=== PATIENT | female | born 1980 | race Asian ===

== ENCOUNTER 2020-05-17 00:08 | Inpatient (IN) | payer OTHER ==
[2020-05-17 00:30] VITALS: BMI 23.8
[2020-05-17] MEDS ORDERED: SODIUM CHLORIDE 500 ML IV STA (00:31)
[2020-05-17 01:00] LABS: BASO % 0.2 % (0-2.0); EOS % 0.1 % (0-4.5); HEMATOCRIT 36.4 % (32.4-45.2); HEMOGLOBIN 12.1 GM/dL (10.7-15.3); LYMPH % 7.7 % (8-40); MCH 31.1 pg (25.7-33.7); MCHC 33.1 g/dl (32.0-36.0); MEAN PLT VOLUME 10.7 fl (7.5-11.1); MONO % 2.4 % (3.8-10.2); NEUT % 89.6 % (42.8-82.8); PLATELET COUNT 193 K/MM3 (134-434); RBC 3.88 M/mm3 (3.60-5.2); RDW 13.2 % (11.6-15.6); WHITE BLOOD COUNT 10.6 K/mm3 (4.0-10.0)
[2020-05-17 01:04] LABS: INR 1.08 (0.83-1.09)
[2020-05-17 01:07] LABS: ACTIVATED PTT 24.2 SECONDS (25.2-36.5)
[2020-05-17 01:16] LABS: POTASSIUM 3.8 mmol/L (3.5-5.1)
[2020-05-17 01:18] LABS: CALCIUM 8.2 mg/dL (8.5-10.1)
[2020-05-17 01:19] LABS: ALBUMIN 3.5 g/dl (3.4-5.0); BLOOD UREA NITROGEN 15.6 mg/dL (7-18)
[2020-05-17 01:21] LABS: CREATININE 0.8 mg/dL (0.55-1.3)
[2020-05-17 01:23] LABS: BILIRUBIN,TOTAL 0.4 mg/dL (0.2-1); TOT PROT 6.4 g/dl (6.4-8.2)
[2020-05-17 01:39] LABS: PH,URINE 6.5 (5.0-8.0); URINE APPEARANCE CLEAR; URINE BILIRUBIN NEGATIVE (NEGATIVE); URINE COLOR YELLOW; URINE GLUCOSE (UA) NEGATIVE (NEGATIVE); URINE KETONE NEGATIVE (NEGATIVE); URINE LEUK ESTERASE NEGATIVE (NEGATIVE); URINE NITRITE NEGATIVE (NEGATIVE); URINE PROTEIN NEGATIVE (NEGATIVE); URINE UROBILINOGEN 0.2 mg/dL (0.2-1.0)
[2020-05-17] MEDS ORDERED: ACETAMINOPHEN 1000 MG/100 ML VIAL (NON FORMULARY) IVPB ONE (02:18)
[2020-05-17] MEDS ORDERED: ACETAMINOPHEN INJECTION 100 ML IVPB ONE (02:40)
[2020-05-17] MEDS ORDERED: LACTATED RINGERS SOLUTION 1000 ML INFUS.BAG IV ONE (02:56)
[2020-05-17] MEDS ORDERED: dilTIAZem HCL 50 MG/10 ML - 10 ML VIAL IVPUSH ONE (04:42)
[2020-05-17] MEDS ORDERED: dilTIAZem HCL 125 MG/25 ML - 25 ML VIAL ONE (04:51)
[2020-05-17] MEDS ORDERED: ONDANSETRON 4 MG/2 ML VIAL IVPUSH PRN (05:46)
[2020-05-17] MEDS: SODIUM CHLORIDE 1,000 ML IV SCH (06:13)
[2020-05-17] MEDS ORDERED: ASPIRIN 81 MG CHEWABLE TABLETS ONE (09:07)
[2020-05-17] MEDS ORDERED: ENOXAPARIN NA (PORCINE) 40 MG/0.4 ML DISP.SYRIN SQ ONE (09:07)
[2020-05-17] MEDS: ASPIRIN 81 MG CHEWABLE TABLETS PO SCH (09:38)
[2020-05-17] MEDS ORDERED: ENOXAPARIN NA (PORCINE) 40 MG/0.4 ML DISP.SYRIN SQ SCH (10:00)
[2020-05-17] MEDS ORDERED: METOPROLOL TARTRATE 25 MG TABLET (FP) ONE ×2 (10:15→21:18)
[2020-05-17] MEDS: METOPROLOL TARTRATE 25 MG TABLET (FP) PO SCH ×2 (10:52→21:25)
[2020-05-17 12:49] LABS: HEMATOCRIT 35.7 % (32.4-45.2); MCH 31.4 pg (25.7-33.7); MCHC 33.5 g/dl (32.0-36.0); MEAN CELL VOLUME 93.8 fl (80-96); MEAN PLT VOLUME 10.6 fl (7.5-11.1); PLATELET COUNT 183 K/MM3 (134-434); RBC 3.81 M/mm3 (3.60-5.2); RDW 13.2 % (11.6-15.6); WHITE BLOOD COUNT 6.4 K/mm3 (4.0-10.0)
[2020-05-17 12:55] LABS: POTASSIUM 3.7 mmol/L (3.5-5.1)
[2020-05-17 12:57] LABS: CALCIUM 8.5 mg/dL (8.5-10.1)
[2020-05-17 12:58] LABS: ALBUMIN 3.2 g/dl (3.4-5.0); BLOOD UREA NITROGEN 12.5 mg/dL (7-18); MAGNESIUM 2.1 mg/dL (1.8-2.4)
[2020-05-17 13:01] LABS: CREATININE 0.7 mg/dL (0.55-1.3); PHOSPHOROUS 2.5 mg/dL (2.5-4.9)
[2020-05-17 13:02] LABS: TOT PROT 6.2 g/dl (6.4-8.2)
[2020-05-17] MEDS: HEPARIN INFUSION - 25,000 UNITS/500 ML INFUS.BAG IVPB SCH ×2 (14:30→17:35)
[2020-05-17] MEDS ORDERED: HEPARIN NA (PORCINE) 5,000 UNITS/ML 1ML VIAL IVPUSH PRN ×2 (17:03)
[2020-05-17] MEDS ORDERED: HEPARIN INFUSION - 25,000 UNITS/500 ML INFUS.BAG IVPB ONE (17:28)
[2020-05-17] MEDS ORDERED: WARFARIN NA 10 MG TABLET PO ONE (18:00)
[2020-05-17] MEDS ORDERED: WARFARIN NA 5 MG TABLET ONE (18:41)
[2020-05-18] MEDS: SODIUM CHLORIDE 1,000 ML IV SCH (05:58)
[2020-05-18 07:43] LABS: INR 1.03 (0.83-1.09); PROTHROMBIN TIME (PATIENT) 12.7 SEC (9.7-13.0)
[2020-05-18 07:45] LABS: ACTIVATED PTT 78.1 SECONDS (25.2-36.5)
[2020-05-18] MEDS ORDERED: ASPIRIN COATED 81 MG TABLET.EC ONE (10:07)
[2020-05-18] MEDS ORDERED: METOPROLOL TARTRATE 25 MG TABLET (FP) ONE (10:07)
[2020-05-18] MEDS: ASPIRIN 81 MG CHEWABLE TABLETS PO SCH (10:23)
[2020-05-18] MEDS: METOPROLOL TARTRATE 25 MG TABLET (FP) PO SCH ×2 (10:23→22:27)
[2020-05-18] MEDS ORDERED: LIDOCAINE VISCOUS 2% ORAL/TOP 20 ML UNIT-DOSE CUP ONE (12:47)
[2020-05-18] MEDS ORDERED: LIDOCAINE VISCOUS 2% ORAL/TOP 20 ML UNIT-DOSE CUP MM ONE (12:54)
[2020-05-18] MEDS ORDERED: HEPARIN INFUSION - 25,000 UNITS/500 ML INFUS.BAG IVPB ONE (17:24)
[2020-05-18] MEDS ORDERED: WARFARIN NA 10 MG TABLET PO ONE (18:00)
[2020-05-18] MEDS ORDERED: WARFARIN NA 5 MG TABLET PO SCH (18:00)
[2020-05-19 07:58] LABS: HEMATOCRIT 34.6 % (32.4-45.2); HEMOGLOBIN 11.6 GM/dL (10.7-15.3); MCH 31.3 pg (25.7-33.7); MCHC 33.6 g/dl (32.0-36.0); MEAN CELL VOLUME 93.2 fl (80-96); MEAN PLT VOLUME 10.6 fl (7.5-11.1); PLATELET COUNT 185 K/MM3 (134-434); RBC 3.71 M/mm3 (3.60-5.2); RDW 13.1 % (11.6-15.6); WHITE BLOOD COUNT 5.7 K/mm3 (4.0-10.0)
[2020-05-19 07:59] LABS: INR 1.8 (0.83-1.09); PROTHROMBIN TIME (PATIENT) 21.4 SEC (9.7-13.0)
[2020-05-19 08:02] LABS: ACTIVATED PTT 81.7 SECONDS (25.2-36.5)
[2020-05-19 08:13] LABS: POTASSIUM 3.7 mmol/L (3.5-5.1)
[2020-05-19 08:19] LABS: CALCIUM 8.2 mg/dL (8.5-10.1)
[2020-05-19 08:20] LABS: ALBUMIN 2.9 g/dl (3.4-5.0); BLOOD UREA NITROGEN 11.9 mg/dL (7-18); MAGNESIUM 2.1 mg/dL (1.8-2.4)
[2020-05-19 08:23] LABS: CREATININE 0.7 mg/dL (0.55-1.3)
[2020-05-19 08:24] LABS: BILIRUBIN,TOTAL 0.3 mg/dL (0.2-1)
[2020-05-19 08:25] LABS: TOT PROT 5.4 g/dl (6.4-8.2)
[2020-05-19] MEDS: HEPARIN INFUSION - 25,000 UNITS/500 ML INFUS.BAG IVPB SCH ×2 (09:00→18:03)
[2020-05-19] MEDS: METOPROLOL TARTRATE 25 MG TABLET (FP) PO SCH ×2 (10:20→21:17)
[2020-05-19] MEDS ORDERED: WARFARIN NA 5 MG TABLET PO ONE (18:00)
[2020-05-19] MEDS ORDERED: WARFARIN NA 10 MG TABLET PO ONE (18:00)
[2020-05-20 07:43] LABS: HEMATOCRIT 33.9 % (32.4-45.2); HEMOGLOBIN 11.5 GM/dL (10.7-15.3); MCH 31.6 pg (25.7-33.7); MCHC 33.9 g/dl (32.0-36.0); MEAN CELL VOLUME 93.2 fl (80-96); MEAN PLT VOLUME 10.4 fl (7.5-11.1); PLATELET COUNT 194 K/MM3 (134-434); RBC 3.64 M/mm3 (3.60-5.2); RDW 13.1 % (11.6-15.6); WHITE BLOOD COUNT 4.9 K/mm3 (4.0-10.0)
[2020-05-20 07:48] LABS: ACTIVATED PTT 79.1 SECONDS (25.2-36.5)
[2020-05-20 07:55] LABS: CALCIUM 8.6 mg/dL (8.5-10.1)
[2020-05-20 07:57] LABS: ALBUMIN 3.2 g/dl (3.4-5.0)
[2020-05-20 07:59] LABS: CREATININE 0.7 mg/dL (0.55-1.3)
[2020-05-20 08:01] LABS: BILIRUBIN,TOTAL 0.5 mg/dL (0.2-1); TOT PROT 5.9 g/dl (6.4-8.2)
[2020-05-20 08:36] LABS: INR 1.94 (0.83-1.09)
[2020-05-20] MEDS: HEPARIN INFUSION - 25,000 UNITS/500 ML INFUS.BAG IVPB SCH (09:00)
[2020-05-20] MEDS: METOPROLOL TARTRATE 25 MG TABLET (FP) PO SCH (10:12)
[2020-05-20 11:25] VITALS: PULSE 65
[2020-05-20 15:30] VITALS: BP 137/73; TEMP 98
== END 2020-05-20 17:11 | disposition home or self-care (01) | DRG 201 ==
LOC: JER 00:08 → JERBED 02:57 → J4W 05-18 20:15
PROVIDERS: ADMIT Internal Medicine; ATTEND Internal Medicine
PROC: B246ZZ4 Ultrasonography of Right and Left Heart, Transesophageal (ICD-10-PCS; 2020-05-18)
PROC: 5A2204Z Restoration of Cardiac Rhythm, Single (ICD-10-PCS; principal; 2020-05-18 12:30)
DX: I48.0 Paroxysmal atrial fibrillation (principal); A08.4 Viral intestinal infection, unspecified; R00.0 Tachycardia, unspecified; J02.9 Acute pharyngitis, unspecified; R19.7 Diarrhea, unspecified; R74.01 Elevation of levels of liver transaminase levels; I05.0 Rheumatic mitral stenosis; K80.00 Calculus of gallbladder with acute cholecystitis without obstruction; I24.8 Other forms of acute ischemic heart disease
CPT/HCPCS: 36415; 71045-TC-FY; 74176-TC; 76705-TC; 80053; 80061; 80074; 81003; 82550; 83036; 83605; 83690; 83721; 83735; 84100; 84443; 84484; 84703; 85025; 85027; 85610; 85730; 87899; 93005; 93010; 93306-TC; 93312; 93325; 94760; 99285-25; C9803; J0131; J1644; U0003

== ENCOUNTER 2020-08-08 14:20 | Emergency (ER) | payer OTHER ==
[2020-08-08 14:30] VITALS: TEMP 97; BMI 24.0
[2020-08-08] MEDS ORDERED: MECLIZINE HCL 12.5 MG TABLET PO ONE (15:54)
[2020-08-08] MEDS ORDERED: METOCLOPRAMIDE HCL INJECTION 10 MG/2 ML VIAL IVPUSH ONE (15:54)
[2020-08-08] MEDS ORDERED: LACTATED RINGERS SOLUTION 1000 ML INFUS.BAG IV ONE ×2 (15:54→16:00)
[2020-08-08] MEDS ORDERED: MECLIZINE HCL 25 MG TABLET (FP) PO ONE (16:00)
[2020-08-08] MEDS ORDERED: METOCLOPRAMIDE HCL INJECTION 10 MG/2 ML VIAL ONE (16:20)
[2020-08-08] MEDS ORDERED: MECLIZINE HCL 25 MG TABLET (FP) ONE (16:20)
[2020-08-08 17:11] LABS: BASO % 0.5 % (0-2.0); EOS % 1.1 % (0-4.5); HEMATOCRIT 40.4 % (32.4-45.2); HEMOGLOBIN 13.5 GM/dL (10.7-15.3); LYMPH % 10.6 % (8-40); MCH 30.6 pg (25.7-33.7); MCHC 33.4 g/dl (32.0-36.0); MEAN CELL VOLUME 91.6 fl (80-96); MEAN PLT VOLUME 9.1 fl (7.5-11.1); NEUT % 84.8 % (42.8-82.8); PLATELET COUNT 222 K/MM3 (134-434); RDW 14.2 % (11.6-15.6); WHITE BLOOD COUNT 9.2 K/mm3 (4.0-10.0)
[2020-08-08 17:17] LABS: INR 2.19 (0.83-1.09); PROTHROMBIN TIME (PATIENT) 25.9 SEC (9.7-13.0)
[2020-08-08 17:42] LABS: CHLORIDE 108 mmol/L (98-107); SODIUM 139 mmol/L (136-145)
[2020-08-08 17:44] LABS: ALBUMIN 4.1 g/dl (3.4-5.0); ANION GAP 4 MMOL/L (8-16); BLOOD UREA NITROGEN 10.5 mg/dL (7-18); CALCIUM 9.2 mg/dL (8.5-10.1); CO2 27 mmol/L (21-32); GLUCOSE,RANDOM 82 mg/dL (74-106); MAGNESIUM 2.3 mg/dL (1.8-2.4)
[2020-08-08 17:47] LABS: CREATININE 0.7 mg/dL (0.55-1.3); SGOT/AST 23 U/L (15-37); SGPT/ALT 23 U/L (13-61)
[2020-08-08 17:49] LABS: BILIRUBIN,TOTAL 0.7 mg/dL (0.2-1); TOT PROT 7.3 g/dl (6.4-8.2)
[2020-08-08 17:50] LABS: ALK PHOS 54 U/L (45-117)
[2020-08-08 19:38] VITALS: BP 128/75; PULSE 67
== END 2020-08-08 19:10 | disposition home or self-care (01) ==
LOC: JER 14:20
PROC: 3E033NZ Introduction of Analgesics, Hypnotics, Sedatives into Peripheral Vein, Percutaneous Approach (ICD-10-PCS; principal; 2020-08-08)
DX: R42 Dizziness and giddiness (principal)
CPT/HCPCS: 36415; 71045-TC-FY; 80053; 82550; 83735; 84443; 84484; 84703; 85025; 85610; 87804; 93005; 93010; 99284-25; C9803; U0003; U0005